=== PATIENT | female | born 1975 | race Caucasian/White ===

== ENCOUNTER 2017-01-19 17:57 | Emergency (ER) | payer OTHER ==
[~2017-01-19] VITALS: Ht 157.5 cm; Wt 86.2 kg
[~2017-01-19 17:57] MED LIST: ATIVAN0.5 MG PO; MOTRIN600 MG PO
[2017-01-19 18:03] VITALS: BP 154/79
[2017-01-19] MEDS ORDERED: fentaNYL 0.05 MG/ML VIAL IVP ONE (18:05)
--- NOTE | 2017-01-19 18:05 | NUR ---
Pt to bed 3 by EMS.
[2017-01-19] MEDS ORDERED: KETAMINE 500 MG/5 ML VIAL IVP ONE (18:10)
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
--- NOTE | 2017-01-19 18:33 | NUR ---
MD AT BEDSIDE, WILL PUT PT ON CONSTANT SEDATION.
--- NOTE | 2017-01-19 18:40 | NUR ---
PT TOLERATED SEDATION WELL, VSS STABLE, WAITING FOR XRAY
[2017-01-19] MEDS ORDERED: PROPOFOL 200 MG/20 ML VIAL IV ONE (19:00)
--- NOTE | 2017-01-19 19:19 | NUR ---
REPORT GIVEN TO SHERRILL, WILL CARE FOR THE PT
--- NOTE | 2017-01-19 19:20 | NUR ---
PT RESTING IN BED, NO S/S OF DISTRESS NOTED. ABLE TO ASWER QUESTIONS, BUT STILL TO FEEL VERY SLEEPY STILL. WILL CONT TO MONITOR.
--- NOTE | 2017-01-19 19:48 | NUR ---
PT CONTINUES ASLEEP.NO S/S OF DISTRESS NOTED AT THIS MOMENT.
--- NOTE | 2017-01-19 20:13 | NUR ---
PT ALERT AND ORIENTED X 4. NO S/S OF DISTRESS NOTED AT THE MOMENT. DENIES ANY PAIN. FAMILY CALLED TO PICK PT UP.
[2017-01-19 20:35] VITALS: BP 128/85
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
== END 2017-01-19 20:35 | disposition home or self-care (01) ==
LOC: MED 17:57
DX: S43.014A Anterior dislocation of right humerus, initial encounter (principal); W51.XXXA Accidental striking against or bumped into by another person, initial encounter; Y93.89 Activity, other specified; Y92.89 Other specified places as the place of occurrence of the external cause; Y99.8 Other external cause status
CPT/HCPCS: 23650; 73030; 96374; 99152; 99153; 99285; J2704; J3010; Q0092

== ENCOUNTER 2017-04-17 14:54 | Emergency (ER) | payer OTHER ==
[~2017-04-17] VITALS: Ht 167.6 cm; Wt 83.9 kg
[~2017-04-17 14:54] MED LIST changes: +ATI.5 PO; -ATIVAN0.5 MG PO; +IBUP-2213 PO; -MOTRIN600 MG PO
[2017-04-17 15:34] VITALS: BP 115/71
--- NOTE | 2017-04-17 15:45 | NUR ---
Patient to bed 08.
--- NOTE | 2017-04-17 15:55 | NUR ---
PATIENT PRESENTS TO ED WITH c/o left sided perineal area abscess x 3 days;hx of gout, anxiety, rx of ativan, allopurinol .DENIES N/V/D; SKIN IS PINK/WARM/DRY; AAOX4 WITH EVEN AND STEADY GAIT; LUNGS CLEAR BL; HR EVEN AND REGULAR; PT DENIES ANY FEVER, CP, SOB, OR COUGH AT THIS TIME; PATIENT STATES PAIN OF 10/10 AT THIS TIME; VSS; PATIENT POSITIONED FOR COMFORT; HOB ELEVATED; BEDRAILS UP X2; BED DOWN.
--- NOTE | 2017-04-17 16:13 | NUR ---
Dr. Marie evaluating patient at bedside.
[2017-04-17] MEDS ORDERED: NACL 0.9% 1,000 ML IV SCH (16:16)
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
--- NOTE | 2017-04-17 17:02 | NUR ---
DR KUMAR SPOKED AND EXPLAINED TO PT REGARDING TEST TO BE DONE TODAY.BUT PT REFUSES AND INSTEAD PT WANTS TO COME BACK TOMORROW.PT SIGNED AMA.
[2017-04-17 17:07] VITALS: BP 114/69
[2017-04-17 17:16] LABS: AMPHETAMINE, URINE POS. ng/ml (NEG <=1000); BARBITURATE, URINE NEG. ng/ml (NEG <=200); BENZODIAZEPINE, URINE NEG. ng/mL (NEG <=200); CANNABINOID, URINE NEG. ng/mL (NEG <=50); COCAINE, URINE NEG. ng/mL (NEG <=300); OPIATE, URINE NEG. ng/mL (NEG <=2000); PHENCYCLIDINE SCREEN,URINE POS. ng/mL (NEG <=25)
== END 2017-04-17 17:02 | disposition left against medical advice (07) ==
LOC: MED 14:54
DX: N75.1 Abscess of Bartholin's gland (principal); F19.10 Other psychoactive substance abuse, uncomplicated; F41.9 Anxiety disorder, unspecified
CPT/HCPCS: 80305; 81025; 82948; 99284; J7030

== ENCOUNTER 2017-07-27 19:40 | Emergency (ER) | payer OTHER ==
[~2017-07-27] VITALS: Ht 167.6 cm; Wt 84.8 kg
[2017-07-27 19:52] VITALS: BP 136/85
[2017-07-27 20:40] LABS: WHITE BLOOD COUNT (AUTO) 9.1 K/uL (4.8-10.8)
[2017-07-27 20:45] LABS: HEMATOCRIT 40.3 % (36-48); HEMOGLOBIN 13.5 g/dL (12.0-16.0); MEAN CORPUSCULAR HEMOGLOBIN 32 pg (27-31); MEAN CORPUSCULAR HGB CONC 33 g/dL (33-37); MEAN CORPUSCULAR VOLUME 97 fL (80-94); PLATELET COUNT (AUTO) 206 K/uL (140-450); RED BLOOD CELL COUNT(AUTO) 4.18 MIL/uL (4.20-5.40); RED CELL DISTRIBUTION WIDTH 12.2 % (11.6-13.7)
[2017-07-27 20:57] LABS: ANION GAP 14.5 (8-16); CARBON DIOXIDE 29.2 mmol/L (21-32); CREATININE 0.8 mg/dL (0.6-1.3); POTASSIUM 3.7 mmol/L (3.5-5.1)
--- NOTE | 2017-07-27 20:59 | NUR ---
PT. AMBULATES TO ER BED 8
[2017-07-27 21:02] LABS: EOSINOPHILS % (MANUAL) 4 % (0-4); LYMPHOCYTES % (MANUAL) 34 % (20-46); MONOCYTES % (MANUAL) 3 % (5-12)
[2017-07-27 21:03] LABS: ALBUMIN 3.8 g/dL (3.4-5.0); PROTHROMBIN TIME 10.1 secs (10.8-13.4); TOTAL BILIRUBIN 0.2 mg/dL (0.0-1.0)
--- NOTE | 2017-07-27 21:30 | NUR ---
41Y/F PT. PRESENT TO ED WITH C/O CHEST PAIN X 3 DAYS. DENIES N/V/D, FEVER. HX. AMXIETY, GOUT. AAO X4, AMBULATORY WITH STEADY GAIT. RESPIRATIONS ROOM AIR, EVEN AND UNLABORED. NO S/SX OF DISTRESS AT THIS TIME. C/O PAIN /. VSS, ER MADE AWARE OF PT. STATUS.
--- NOTE | 2017-07-27 21:30 | NUR ---
Patient being evaluated by physician at bedside.
[2017-07-27 21:49] VITALS: BP 114/82
--- NOTE | 2017-07-27 21:50 | NUR ---
Patient discharged with v/s stable. Written and verbal after care instructions given and explained. Patient alert, oriented and verbalized understanding of instructions. Ambulatory with steady gait. All questions addressed prior to discharge. ID band removed. Patient advised to follow up with PMD. Rx of NAPROSYN 500 MG given. Patient educated on indication of medication including possible reaction and side effects. Opportunity to ask questions provided and answered.
== END 2017-07-27 21:50 | disposition home or self-care (01) ==
LOC: MED 19:40
DX: R07.9 Chest pain, unspecified (principal)
CPT/HCPCS: 36415; 71010; 80053; 83880; 84484; 85025; 85610; 85730; 93005; 99285

== ENCOUNTER 2022-08-11 17:43 | Emergency (ER) | payer MEDICAID, OTHER ==
[~2022-08-11] VITALS: Ht 167.6 cm; Wt 80.7 kg
[2022-08-11 18:11] VITALS: BP 126/78
--- NOTE | 2022-08-11 20:24 | NUR ---
CALLED FOR EXAM , NO ANSWER
== END 2022-08-11 23:07 | disposition left against medical advice (07) ==
LOC: MED 17:43
DX: R11.2 Nausea with vomiting, unspecified (principal); Z53.21 Procedure and treatment not carried out due to patient leaving prior to being seen by health care provider